=== PATIENT | male | born 1960 | race African-American/Black ===

== ENCOUNTER 2020-08-21 09:54 | Inpatient (IN) | payer OTHER ==
[2020-08-21 10:54] VITALS: BMI 29.9
[2020-08-21] MEDS ORDERED: NALOXONE (NARCAN) HCL 4 MG/0.1 ML SPRAY NS PRN (11:15)
[2020-08-21] MEDS ORDERED: ACETAMINOPHEN 325 MG TABLET (FP) PO PRN ×2 (11:15)
[2020-08-21] MEDS ORDERED: MAG HYDROX/AL HYDROX/SIMETH 30 ML UNIT-DOSE CUP PO PRN (11:15)
[2020-08-21] MEDS ORDERED: IBUPROFEN 400 MG TABLET (FP) PO PRN (11:15)
[2020-08-21] MEDS ORDERED: ONDANSETRON *ODT* 4 MG TABLET SL PRN (11:15)
[2020-08-21] MEDS ORDERED: BISMUTH SUBSALICYLATE 524 MG/30 ML UD PO PRN (11:15)
[2020-08-21] MEDS ORDERED: MAGNESIUM CITRATE 300 ML BOTTLE PO PRN (11:15)
[2020-08-21] MEDS ORDERED: MAGNESIUM HYDROX 2400MG/30ML ORAL SUSPENSION 30 ML CUP PO PRN (11:15)
[2020-08-21] MEDS ORDERED: LORazepam 1 MG TABLET PO PRN (11:15)
[2020-08-21] MEDS ORDERED: NICOTINE POLACRILEX 2 MG GUM BUC PRN (11:15)
[2020-08-21] MEDS ORDERED: MENTHOL/PHENOL 1 EACH UD MM PRN (11:15)
[2020-08-21] MEDS ORDERED: NICOTINE 7 MG/24 HOURS TOPICAL PATCH TD SCH (11:30)
[2020-08-21 12:46] LABS: HEMATOCRIT 35.3 % (35.4-49); HEMOGLOBIN 11.7 GM/dL (11.7-16.9); MCH 28.8 pg (25.7-33.7); MCHC 33.1 g/dl (32.0-35.9); MEAN CELL VOLUME 86.8 fl (80-96); MEAN PLT VOLUME 9.4 fl (7.5-11.1); PLATELET COUNT 243 K/MM3 (134-434); RBC 4.07 M/mm3 (4.00-5.60); RDW 14.4 % (11.9-15.9); WHITE BLOOD COUNT 6.6 K/mm3 (4.0-10.0)
[2020-08-21 12:49] LABS: POTASSIUM 3.7 mmol/L (3.5-5.1)
[2020-08-21 13:05] LABS: ALBUMIN 4.1 g/dl (3.4-5.0); BLOOD UREA NITROGEN 12.4 mg/dL (7-18)
[2020-08-21 13:10] LABS: CALCIUM 9.5 mg/dL (8.5-10.1)
[2020-08-21 13:15] LABS: BILIRUBIN,TOTAL 0.6 mg/dL (0.2-1); TOT PROT 7.6 g/dl (6.4-8.2)
[2020-08-21] MEDS: hydrOXYzine PAMOATE 25 MG CAPSULE (FP) PO SCH ×3 (13:30→23:23)
[2020-08-21] MEDS: PRENATAL VITAMINS W/ FOLIC ACID TABLET (FP) PO SCH (13:31)
[2020-08-21 15:40] LABS: HIV INTERPRETATION NEGATIVE (NEGATIVE)
[2020-08-21] MEDS: LORazepam 2 MG TABLET PO SCH ×2 (17:55→22:41)
[2020-08-21] MEDS ORDERED: MELATONIN 5 MG TABLETS PO SCH (22:00)
[2020-08-21] MEDS: THIAMINE HCL 100 MG TABLET (FP) PO SCH (22:41)
[2020-08-21] MEDS: traZODone HCL 50 MG TABLET (FP) PO SCH (22:41)
[2020-08-21] MEDS: MELATONIN 5 MG TABLETS PO PRN (22:42)
[2020-08-22] MEDS: LORazepam 2 MG TABLET PO SCH ×4 (05:27→22:30)
[2020-08-22] MEDS: hydrOXYzine PAMOATE 25 MG CAPSULE (FP) PO SCH ×5 (05:27→22:30)
[2020-08-22] MEDS: METHADONE HCL 40 MG DISPERSABLE TABLET PO SCH (05:29)
[2020-08-22] MEDS: PRENATAL VITAMINS W/ FOLIC ACID TABLET (FP) PO SCH (10:31)
[2020-08-22] MEDS: ASPIRIN COATED 81 MG TABLET.EC PO SCH (10:31)
[2020-08-22] MEDS: SERTRALINE HCL 25 MG TABLET (FP) PO SCH (13:01)
[2020-08-22] MEDS: METHOCARBAMOL 500 MG TABLET PO PRN (15:51)
[2020-08-22] MEDS: traZODone HCL 50 MG TABLET (FP) PO SCH (22:29)
[2020-08-22] MEDS: THIAMINE HCL 100 MG TABLET (FP) PO SCH (22:29)
[2020-08-22] MEDS: MELATONIN 5 MG TABLETS PO PRN (22:30)
[2020-08-23] MEDS: hydrOXYzine PAMOATE 25 MG CAPSULE (FP) PO SCH ×5 (05:31→22:33)
[2020-08-23] MEDS: METHADONE HCL 40 MG DISPERSABLE TABLET PO SCH (05:31)
[2020-08-23] MEDS: METHOCARBAMOL 500 MG TABLET PO PRN (05:32)
[2020-08-23] MEDS: LORazepam 1 MG TABLET PO SCH ×4 (05:32→22:33)
[2020-08-23] MEDS: SERTRALINE HCL 25 MG TABLET (FP) PO SCH (10:20)
[2020-08-23] MEDS: ASPIRIN COATED 81 MG TABLET.EC PO SCH (10:20)
[2020-08-23] MEDS: PRENATAL VITAMINS W/ FOLIC ACID TABLET (FP) PO SCH (10:20)
[2020-08-23] MEDS: traZODone HCL 50 MG TABLET (FP) PO SCH (22:33)
[2020-08-23] MEDS: THIAMINE HCL 100 MG TABLET (FP) PO SCH (22:33)
[2020-08-24] MEDS ORDERED: LORazepam 0.5 MG TABLET PO PRN
[2020-08-24] MEDS: hydrOXYzine PAMOATE 25 MG CAPSULE (FP) PO SCH ×5 (05:33→22:27)
[2020-08-24] MEDS: LORazepam 0.5 MG TABLET PO SCH ×4 (05:33→22:27)
[2020-08-24] MEDS: METHADONE HCL 40 MG DISPERSABLE TABLET PO SCH (05:34)
[2020-08-24] MEDS: ASPIRIN COATED 81 MG TABLET.EC PO SCH (10:08)
[2020-08-24] MEDS: PRENATAL VITAMINS W/ FOLIC ACID TABLET (FP) PO SCH (10:09)
[2020-08-24] MEDS: SERTRALINE HCL 25 MG TABLET (FP) PO SCH (10:39)
[2020-08-24] MEDS: traZODone HCL 50 MG TABLET (FP) PO SCH (22:27)
[2020-08-24] MEDS: THIAMINE HCL 100 MG TABLET (FP) PO SCH (22:28)
[2020-08-25] MEDS ORDERED: LORazepam 0.5 MG TABLET PO ONE (05:00)
[2020-08-25] MEDS: hydrOXYzine PAMOATE 25 MG CAPSULE (FP) PO SCH ×3 (05:33→13:56)
[2020-08-25] MEDS: METHADONE HCL 40 MG DISPERSABLE TABLET PO SCH (05:34)
[2020-08-25] MEDS: ASPIRIN COATED 81 MG TABLET.EC PO SCH (09:43)
[2020-08-25] MEDS: SERTRALINE HCL 25 MG TABLET (FP) PO SCH (09:44)
[2020-08-25] MEDS: PRENATAL VITAMINS W/ FOLIC ACID TABLET (FP) PO SCH (09:44)
[2020-08-25 13:24] VITALS: BP 109/60; PULSE 96; TEMP 97.7
== END 2020-08-25 14:05 | disposition other institution (70) | DRG 773 ==
LOC: YASAS 09:54 → Y6N 12:42
PROVIDERS: ADMIT Allergy & Immunology; ATTEND Allergy & Immunology
PROC: HZ2ZZZZ Detoxification Services for Substance Abuse Treatment (ICD-10-PCS; principal; 2020-08-21)
DX: F13.230 Sedative, hypnotic or anxiolytic dependence with withdrawal, uncomplicated (principal); F11.20 Opioid dependence, uncomplicated; F10.20 Alcohol dependence, uncomplicated; F14.20 Cocaine dependence, uncomplicated; F12.20 Cannabis dependence, uncomplicated; F17.210 Nicotine dependence, cigarettes, uncomplicated; F19.280 Other psychoactive substance dependence with psychoactive substance-induced anxiety disorder; F19.282 Other psychoactive substance dependence with psychoactive substance-induced sleep disorder; F19.24 Other psychoactive substance dependence with psychoactive substance-induced mood disorder; F31.9 Bipolar disorder, unspecified; E78.5 Hyperlipidemia, unspecified; J43.9 Emphysema, unspecified; B18.2 Chronic viral hepatitis C; Z86.16 Personal history of COVID-19; Z90.49 Acquired absence of other specified parts of digestive tract; Z87.828 Personal history of other (healed) physical injury and trauma
CPT/HCPCS: 36415; 80053; 82947; 85027; 86780; 87389; 93005; 93010; C9803; U0003

== ENCOUNTER 2020-08-25 13:26 | Inpatient (IN) | payer OTHER ==
[2020-08-25] MEDS ORDERED: MAGNESIUM CITRATE 300 ML BOTTLE PO PRN (13:51)
[2020-08-25] MEDS ORDERED: LOPERAMIDE HCL 2 MG CAPSULE PO PRN (13:51)
[2020-08-25] MEDS ORDERED: MAG HYDROX/AL HYDROX/SIMETH 30 ML UNIT-DOSE CUP PO PRN (13:51)
[2020-08-25] MEDS ORDERED: MAGNESIUM HYDROX 2400MG/30ML ORAL SUSPENSION 30 ML CUP PO PRN (13:51)
[2020-08-25] MEDS ORDERED: IBUPROFEN 400 MG TABLET (FP) PO PRN (13:51)
[2020-08-25] MEDS ORDERED: P-EPHED 60MG/TRIPROLIDI 2.5MG TABLET PO PRN (13:51)
[2020-08-25] MEDS ORDERED: guaiFENesin 200 MG/10 ML 10 ML UNIT-DOSE CUPS PO PRN (13:51)
[2020-08-25] MEDS ORDERED: NICOTINE POLACRILEX 2 MG GUM BC PRN (13:51)
[2020-08-25] MEDS: traZODone HCL 50 MG TABLET (FP) PO SCH (21:17)
[2020-08-25] MEDS: DOCUSATE SODIUM 100 MG CAPSULE (FP) PO SCH (21:17)
[2020-08-25] MEDS: MELATONIN 5 MG TABLETS PO SCH (21:18)
[2020-08-25] MEDS: THIAMINE HCL 100 MG TABLET (FP) PO SCH (21:18)
[2020-08-26] MEDS: METHADONE HCL 40 MG DISPERSABLE TABLET PO SCH (06:42)
[2020-08-26] MEDS: ASPIRIN COATED 81 MG TABLET.EC PO SCH (10:42)
[2020-08-26] MEDS: SERTRALINE HCL 25 MG TABLET (FP) PO SCH (10:42)
[2020-08-26] MEDS: PRENATAL VITAMINS W/ FOLIC ACID TABLET (FP) PO SCH (10:43)
[2020-08-26] MEDS: traZODone HCL 50 MG TABLET (FP) PO SCH (21:35)
[2020-08-26] MEDS: DOCUSATE SODIUM 100 MG CAPSULE (FP) PO SCH (21:35)
[2020-08-26] MEDS: MELATONIN 5 MG TABLETS PO SCH (21:36)
[2020-08-26] MEDS: ACETAMINOPHEN 325 MG TABLET (FP) PO PRN (21:36)
[2020-08-26] MEDS: THIAMINE HCL 100 MG TABLET (FP) PO SCH (21:36)
[2020-08-27] MEDS: METHADONE HCL 40 MG DISPERSABLE TABLET PO SCH (06:20)
[2020-08-27] MEDS: PRENATAL VITAMINS W/ FOLIC ACID TABLET (FP) PO SCH (09:53)
[2020-08-27] MEDS: SERTRALINE HCL 25 MG TABLET (FP) PO SCH (09:53)
[2020-08-27] MEDS: ASPIRIN COATED 81 MG TABLET.EC PO SCH (09:53)
[2020-08-27] MEDS: ACETAMINOPHEN 325 MG TABLET (FP) PO PRN (09:54)
[2020-08-27] MEDS: DOCUSATE SODIUM 100 MG CAPSULE (FP) PO SCH (21:06)
[2020-08-27] MEDS: traZODone HCL 50 MG TABLET (FP) PO SCH (21:06)
[2020-08-27] MEDS: MELATONIN 5 MG TABLETS PO SCH (21:06)
[2020-08-27] MEDS: THIAMINE HCL 100 MG TABLET (FP) PO SCH (21:06)
[2020-08-28] MEDS: METHADONE HCL 40 MG DISPERSABLE TABLET PO SCH (06:17)
[2020-08-28] MEDS: PRENATAL VITAMINS W/ FOLIC ACID TABLET (FP) PO SCH (10:17)
[2020-08-28] MEDS: SERTRALINE HCL 25 MG TABLET (FP) PO SCH (10:17)
[2020-08-28] MEDS: ASPIRIN COATED 81 MG TABLET.EC PO SCH (10:18)
[2020-08-28] MEDS: busPIRone HCL 5 MG TABLET PO SCH ×2 (15:03→21:19)
[2020-08-28] MEDS: hydrOXYzine PAMOATE 25 MG CAPSULE (FP) PO PRN ×2 (15:55→21:21)
[2020-08-28] MEDS: DOCUSATE SODIUM 100 MG CAPSULE (FP) PO SCH (21:19)
[2020-08-28] MEDS: THIAMINE HCL 100 MG TABLET (FP) PO SCH (21:19)
[2020-08-28] MEDS: MELATONIN 5 MG TABLETS PO SCH (21:19)
[2020-08-28] MEDS: QUEtiapine FUMARATE 50 MG TABLET PO SCH (21:20)
[2020-08-28] MEDS: MIRTAZAPINE 15 MG TABLET (FP) PO SCH (21:21)
[2020-08-28] MEDS ORDERED: MASKS NR ONE (21:31)
[2020-08-29] MEDS: busPIRone HCL 5 MG TABLET PO SCH ×3 (06:13→21:22)
[2020-08-29] MEDS: PRENATAL VITAMINS W/ FOLIC ACID TABLET (FP) PO SCH (10:02)
[2020-08-29] MEDS: ASPIRIN COATED 81 MG TABLET.EC PO SCH (10:03)
[2020-08-29] MEDS: hydrOXYzine PAMOATE 25 MG CAPSULE (FP) PO PRN ×3 (10:04→17:55)
[2020-08-29] MEDS ORDERED: ONDANSETRON *ODT* 4 MG TABLET SL PRN (10:45)
[2020-08-29] MEDS: METHADONE HCL 40 MG DISPERSABLE TABLET PO SCH (10:55)
[2020-08-29] MEDS: PANTOPRAZOLE 40 MG TABLET PO SCH (12:00)
[2020-08-29] MEDS ORDERED: METHADONE HCL 40 MG DISPERSABLE TABLET PO ONE (12:15)
[2020-08-29] MEDS: VITAMINS A AND D TOPICAL OINTMENT 60 GM TUBE TP SCH ×3 (13:48→23:43)
[2020-08-29] MEDS: DOCUSATE SODIUM 100 MG CAPSULE (FP) PO SCH (21:19)
[2020-08-29] MEDS: QUEtiapine FUMARATE 50 MG TABLET PO SCH (21:20)
[2020-08-29] MEDS: MIRTAZAPINE 15 MG TABLET (FP) PO SCH (21:22)
[2020-08-29] MEDS: THIAMINE HCL 100 MG TABLET (FP) PO SCH (21:23)
[2020-08-29] MEDS: MELATONIN 5 MG TABLETS PO SCH (21:23)
[2020-08-30] MEDS: VITAMINS A AND D TOPICAL OINTMENT 60 GM TUBE TP SCH ×4 (06:18→23:47)
[2020-08-30] MEDS: busPIRone HCL 5 MG TABLET PO SCH ×3 (06:18→21:05)
[2020-08-30] MEDS: ASPIRIN COATED 81 MG TABLET.EC PO SCH (10:12)
[2020-08-30] MEDS: hydrOXYzine PAMOATE 25 MG CAPSULE (FP) PO PRN ×2 (10:12→21:06)
[2020-08-30] MEDS: PANTOPRAZOLE 40 MG TABLET PO SCH (10:12)
[2020-08-30] MEDS: METHADONE HCL 40 MG DISPERSABLE TABLET PO SCH (10:12)
[2020-08-30] MEDS: PRENATAL VITAMINS W/ FOLIC ACID TABLET (FP) PO SCH (10:12)
[2020-08-30] MEDS: THIAMINE HCL 100 MG TABLET (FP) PO SCH (21:05)
[2020-08-30] MEDS: DOCUSATE SODIUM 100 MG CAPSULE (FP) PO SCH (21:05)
[2020-08-30] MEDS: MELATONIN 5 MG TABLETS PO SCH (21:05)
[2020-08-30] MEDS: MIRTAZAPINE 15 MG TABLET (FP) PO SCH (21:05)
[2020-08-30] MEDS: QUEtiapine FUMARATE 50 MG TABLET PO SCH (21:05)
[2020-08-31] MEDS: busPIRone HCL 5 MG TABLET PO SCH (06:33)
[2020-08-31] MEDS: VITAMINS A AND D TOPICAL OINTMENT 60 GM TUBE TP SCH (06:33)
[2020-08-31 06:52] VITALS: TEMP 98.4
[2020-08-31] MEDS: PRENATAL VITAMINS W/ FOLIC ACID TABLET (FP) PO SCH (09:42)
[2020-08-31] MEDS: ASPIRIN COATED 81 MG TABLET.EC PO SCH (09:42)
[2020-08-31] MEDS: hydrOXYzine PAMOATE 25 MG CAPSULE (FP) PO PRN (09:42)
[2020-08-31] MEDS: METHADONE HCL 40 MG DISPERSABLE TABLET PO SCH (09:42)
[2020-08-31] MEDS: PANTOPRAZOLE 40 MG TABLET PO SCH (09:42)
[2020-08-31 11:53] VITALS: BP 167/82; PULSE 74
== END 2020-08-31 10:41 | disposition left against medical advice (07) | DRG 770 ==
LOC: YASAS 13:26 → Y3W 13:27
PROVIDERS: ADMIT Allergy & Immunology; ATTEND Allergy & Immunology
PROC: HZ42ZZZ Group Counseling for Substance Abuse Treatment, Cognitive-Behavioral (ICD-10-PCS; principal; 2020-08-25)
DX: F13.20 Sedative, hypnotic or anxiolytic dependence, uncomplicated (principal); F11.20 Opioid dependence, uncomplicated; F14.20 Cocaine dependence, uncomplicated; F10.20 Alcohol dependence, uncomplicated; F12.20 Cannabis dependence, uncomplicated; F17.210 Nicotine dependence, cigarettes, uncomplicated; F19.280 Other psychoactive substance dependence with psychoactive substance-induced anxiety disorder; F19.24 Other psychoactive substance dependence with psychoactive substance-induced mood disorder; J44.9 Chronic obstructive pulmonary disease, unspecified; E78.5 Hyperlipidemia, unspecified; K21.9 Gastro-esophageal reflux disease without esophagitis; Z86.16 Personal history of COVID-19; Z90.49 Acquired absence of other specified parts of digestive tract; Z87.828 Personal history of other (healed) physical injury and trauma; F31.9 Bipolar disorder, unspecified
CPT/HCPCS: 83036; C9803; U0003